=== PATIENT | male | born 1970 | race Hispanic/Latino ===

== ENCOUNTER 2017-04-06 14:51 | Emergency (ER) | payer OTHER ==
[2017-04-06 15:05] VITALS: BMI 27.4
[2017-04-06 15:08] VITALS: BP 115/67; PULSE 72; RESP 20; TEMP 97.6; O2SAT 99
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
== END 2017-04-06 15:45 | disposition home or self-care (01) ==
LOC: C.ER 14:51
DX: S39.012A Strain of muscle, fascia and tendon of lower back, initial encounter (principal); S63.501A Unspecified sprain of right wrist, initial encounter; S93.401A Sprain of unspecified ligament of right ankle, initial encounter; V43.52XA Car driver injured in collision with other type car in traffic accident, initial encounter; Y92.410 Unspecified street and highway as the place of occurrence of the external cause